=== PATIENT | male | born 1970 | race Hispanic/Latino ===

== ENCOUNTER 2017-01-20 14:31 | Emergency (ER) | payer MEDICAID ==
[2017-01-20 14:32] VITALS: BMI 32.5
[2017-01-20 14:40] VITALS: TEMP 98.2
--- NOTE | 2017-01-20 14:41 | ED PDOC ---
Arrival/HPI - General Time Seen by Provider: 01/20/17 14:37 Historian: Patient - History of Present Illness Narrative History of Present Illness (Text): 01/20/17 14:39 46 y/o male, pmh including lumbar transverse fracture, nkda, c/o abdominal pain with diarrhea started last night. Lt. sided abdominal pain, cramping sensation , watery diarrhea, no recent traveling for the past 3 weeks, no recent antibiotic taken for the past 3 weeks, no objective fever or chills, no night sweat, no rash, no other medical or psychological complaints. Past Medical History - Provider Review Nursing Documentation Reviewed: Yes - Past Medical History Past Medical History: No Previous - Cardiac Hx Cardiac Disorders: No - Pulmonary Hx Respiratory Disorders: Yes Hx Asthma: Yes - Neurological Hx Neurological Disorder: No - HEENT Hx HEENT Disorder: No (WERS RX GLASSES) - Renal Hx Renal Disorder: No - Endocrine/Metabolic Hx Endocrine Disorders: No - Hematological/Oncological Hx Blood Disorders: No - Integumentary Hx Dermatological Disorder: No - Musculoskeletal/Rheumatological Hx Musculoskeletal Disorders: Yes Hx Falls: Yes (RECENT ONE TODAY 05-30-14) Hx Fractures: Yes (LUMBAR TRANSVERSE PROCESS FX.-05-30-14) - Gastrointestinal Hx Gastrointestinal Disorders: No (COSTIPATION) - Genitourinary/Gynecological Hx Genitourinary Disorders: No - Psychiatric Hx Psychophysiologic Disorder: Yes Hx Bipolar Disorder: Yes Hx Depression: Yes Hx Substance Use: No - Past Surgical History Past Surgical History: No Previous - Anesthesia Hx Anesthesia: No Family/Social History - Physician Review Nursing Documentation Reviewed: Yes Family/Social History: Unknown Family HX Smoking Status: Never Smoked Hx Alcohol Use: No Hx Substance Use: No Allergies/Home Meds Allergies/Adverse Reactions: Allergies No Known Allergies Allergy (Verified 01/20/17 14:36) Home Medications: Home Meds Medication Instructions Recorded Confirmed DULoxetine [Cymbalta] 30 mg PO DAILY 05/30/14 01/20/17 Divalproex [Depakote DR] 500 mg PO BID 05/30/14 01/20/17 Review of Systems - Review of Systems Constitutional: absent: Fatigue, Fevers Eyes: absent: Vision Changes ENT: absent: Hearing Changes Respiratory: absent: SOB, Cough, Sputum Cardiovascular: absent: Chest Pain Gastrointestinal: Abdominal Pain, Diarrhea. absent: Constipation, Nausea, Vomiting Musculoskeletal: absent: Arthralgias, Back Pain, Neck Pain, Myalgias Neurological: absent: Headache, Dizziness, Focal Weakness, Gait Changes, Speech Changes Physical Exam Vital Signs Reviewed: Yes Vital Signs Temp Pulse Resp BP Pulse Ox 01/20/17 17:00 67 18 118/79 99 01/20/17 15:41 98.2 F 71 18 120/83 99 01/20/17 14:36 98.2 F 71 16 120/83 96 Temperature: Afebrile Blood Pressure: Normal Pulse: Regular Respiratory Rate: Normal Appearance: Positive for: Well-Appearing, Non-Toxic, Comfortable Pain Distress: Mild Mental Status: Positive for: Alert and Oriented X 3 - Systems Exam Head: Present: Atraumatic, Normocephalic Pupils: Present: PERRL Extroacular Muscles: Present: EOMI Conjunctiva: Present: Normal Mouth: Present: Moist Mucous Membranes Neck: Present: Normal Range of Motion Respiratory/Chest: Present: Clear to Auscultation, Good Air Exchange. No: Respiratory Distress, Accessory Muscle Use Cardiovascular: Present: Regular Rate and Rhythm, Normal S1, S2. No: Murmurs Abdomen: Present: Tenderness (+ttp on the left sided abdominal region. ), Normal Bowel Sounds. No: Distention, Peritoneal Signs, Rebound, Guarding Back: Present: Normal Inspection. No: CVA Tenderness, Midline Tenderness, Paraspinal Tenderness Upper Extremity: Present: Normal Inspection. No: Cyanosis, Edema Lower Extremity: Present: Normal Inspection. No: Edema Neurological: Present: GCS=15, Speech Normal, Motor Func Grossly Intact, Gait Normal, Memory Normal Skin: Present: Warm, Dry, Normal Color. No: Rashes Psychiatric: Present: Alert, Oriented x 3, Normal Insight, Normal Concentration Medical Decision Making ED Course and Treatment: 01/20/17 14:52 -labs/ua -CT abdomen and pelvis with IV contrast -IVF/pepcid/zofran -Observe and reassess 01/20/17 17:42 -Labs are non-significant, lipase within normal imit -UA show no UTI -CT abdomen and pelvis show no acute findings. -Pt. feels much better, will discharge home. -Discharge home with pepcid, zofran, BRAT diet, stay hydrated, non-dairy diet, follow up with your own pmd and GI within 2 days, return to the ER for any new or worsening signs or symptoms. - Lab Interpretations Lab Results: 01/20/17 15:39 01/20/17 15:39 Lab Results 01/20/17 17:03: Urine Color Yellow, Urine Appearance Clear, Urine pH 7.0, Ur Specific [place] 1.020, Urine Protein Negative, Urine Glucose (UA) Negative, Urine Ketones Negative, Urine Blood Trace-intact H, Urine Nitrate Negative, Urine Bilirubin Negative, Urine Urobilinogen 0.2, Ur Leukocyte Esterase Negative , Urine RBC 0 - 2, Urine WBC 0 - 2, Ur Epithelial Cells 0 - 2, Urine Bacteria Neg 01/20/17 15:39: Sodium 140, Potassium 4.1, Chloride 106, Carbon Dioxide 26, Anion Gap 12, BUN 19, Creatinine 0.7, Est GFR ( Amer) > 60, Est GFR (Non- Af Amer) > 60, Random Glucose 89, Calcium 8.7, Total Bilirubin 0.7, AST 26, ALT 33, Alkaline Phosphatase 54, Total Protein 7.4, Albumin 3.9, Globulin 3.5, Albumin/Globulin Ratio 1.1, Lipase 54 01/20/17 15:39: WBC 5.2 D, RBC 4.62, Hgb 13.2 L, Hct 39.6 L, MCV 85.7, MCH 28.6 , MCHC 33.3, RDW 13.5, Plt Count 260, MPV 8.9, Gran % 54.3, Lymph % (Auto) 37.7 H, Leake % (Auto) 6.2 H, Eos % (Auto) 1.2 L, Baso % (Auto) 0.6, Gran # 2.80, Lymph # 1.9, Leake # 0.3, Eos # 0.1, Baso # 0.03 I have reviewed the lab results: Yes Interpretation: No clinic. lab abnormalty - RAD Interpretation Radiology Orders: 01/20/17 14:49 ABDOMEN & PELVIS [ABD & PELVIS IV CONTRAST ONLY] [CT] Stat PROCEDURE: CT Abdomen and Pelvis with contrast HISTORY: Lt. sided abdominal pain with diarrhea COMPARISON: Comparison is made to the previous study dated 05/30/2014 TECHNIQUE: Contrast dose: 100 mL Omnipaque 350. Axial and reformatted coronal and sagittal CT images of the abdomen and pelvis were obtained after IV contrast administration. Radiation dose: Total exam DLP = 814.21 mGy-cm. This CT exam was performed using one or more of the following dose reduction techniques: Automated exposure control, adjustment of the mA and/or kV according to patient size, and/or use of iterative reconstruction technique. FINDINGS: LOWER THORAX: Pleural thickening and trace pleural effusion are again seen at the left lower chest. No significant interval change in the lung bases since the previous exam. LIVER: Unremarkable. No gross lesion or ductal dilatation. GALLBLADDER AND BILE DUCTS: Unremarkable. PANCREAS: Unremarkable. No gross lesion or ductal dilatation. SPLEEN: Unremarkable. ADRENALS: Unremarkable. No mass. KIDNEYS AND URETERS: Unremarkable. No hydronephrosis. No solid mass. VASCULATURE: Unremarkable. No aortic aneurysm. BOWEL: Unremarkable. No obstruction. No gross mural thickening. APPENDIX: Normal appendix. PERITONEUM: Unremarkable. No free fluid. No free air. LYMPH NODES: Unremarkable. No enlarged lymph nodes. BLADDER: Unremarkable. REPRODUCTIVE: Unremarkable. BONES: No acute fracture. OTHER FINDINGS: None. IMPRESSION: No evidence of acute pathology in the abdomen and pelvis. No CT evidence of cholecystitis pancreatitis appendicitis or diverticulitis. No significant interval change since the previous exam noted. Broiler Manager: Radiologist - Medication Orders Current Medication Orders: Discontinued Medications Famotidine (Pepcid) 20 mg IVP STAT STA Stop: 01/20/17 14:45 Last Admin: 01/20/17 15:47 Dose: 20 mg Sodium Chloride (Sodium Chloride 0.9%) 1,000 mls @ 999 mls/hr IV .Q1H1M STA Stop: 01/20/17 15:44 Last Admin: 01/20/17 15:48 Dose: 999 mls/hr Iohexol (Omnipaque 350 100 Ml) Confirm Administered Dose 350 mg .ROUTE .STK-MED ONE Stop: 01/20/17 16:38 Ondansetron HCl (Zofran Inj) 4 mg IVP STAT STA Stop: 01/20/17 14:45 Last Admin: 01/20/17 15:47 Dose: 4 mg - PA / EATING DISORDER PSYCHOLOGIST / Resident Statement /DO has reviewed & agrees with the documentation as recorded. Disposition/Present on Arrival - Present on Arrival Any Indicators Present on Arrival: No History of DVT/PE: No History of Uncontrolled Diabetes: No Urinary Catheter: No History of Decub. Ulcer: No History Surgical Site Infection Following: None - Disposition Have Diagnosis and Disposition been Completed?: Yes Diagnosis: Gastroenteritis Disposition: HOME/ ROUTINE Disposition Time: 17:43 Patient Plan: Discharge Condition: IMPROVED Print Language: GERMAN Additional Instructions: Discharge home with pepcid, zofran, BRAT diet, stay hydrated, non-dairy diet, follow up with your own pmd and GI within 2 days, return to the ER for any new or worsening signs or symptoms. Prescriptions: Famotidine [Pepcid] 20 mg PO BID #14 tab Ondansetron [Zofran] 4 mg PO Q8H PRN #10 tab PRN Reason: Nausea/Vomiting Referrals: Carolyn Pinto MD [Primary Care Provider] - Follow up with primary Arnoldo Celis MD [Staff Provider] - Follow up with primary Forms: WORK NOTE
[2017-01-20] MEDS ORDERED: Sodium Chloride 0.9% 1,000 ML IV STA (14:44)
[2017-01-20 15:42] VITALS: RESP 18; O2SAT 99
[2017-01-20 16:01] LABS: ADD MANUAL DIFF? NO
[2017-01-20 16:03] LABS: BASO # 0.03 K/mm3 (0.0-2.0); BASO % 0.6 % (0.0-3.0); EOS # 0.1 (0.0-0.7); EOS % 1.2 % (1.5-5.0); GRAN % 54.3 % (50.0-68.0); HEMATOCRIT 39.6 % (42.0-52.0); LYMPH # 1.9 (1.2-3.4); LYMPH % 37.7 % (22.0-35.0); MEAN CELL VOLUME 85.7 fL (80.0-105.0); MEAN CORPUSCULAR HEMOGLOBIN 28.6 pg (25.0-35.0); MEAN CORPUSCULAR HGB CONC 33.3 g/dl (31.0-37.0); MEAN PLATELET VOLUME 8.9 fl (7.0-11.0); MONO # 0.3 (0.1-0.6); MONO % 6.2 % (1.0-6.0); PLATELET COUNT 260 10^3/uL (120.0-450.0); RED CELL DISTRIBUTION WIDTH 13.5 % (11.5-14.5); WHITE BLOOD COUNT 5.2 10^3/ul (4.5-11.0)
[2017-01-20 16:17] LABS: ALB/GLOB RATIO 1.1 (1.1-1.8); ALKALINE PHOSPHATASE 54 U/L (38-133); ALT/SGPT 33 U/L (7-56); AST/SGOT 26 U/L (15-59); BILIRUBIN,TOTAL 0.7 mg/dL (0.2-1.3); BLOOD UREA NITROGEN 19 mg/dL (7-21); CALCIUM 8.7 mg/dL (8.4-10.5); CARBON DIOXIDE 26 mmol/L (21-33); CHLORIDE 106 mmol/L (98-107); GFR AFRICAN-AMERICAN > 60; GLUCOSE,RANDOM 89 mg/dL (70-110); LIPASE 54 U/L (23-300); POTASSIUM 4.1 mmol/L (3.6-5.0); SODIUM 140 mmol/L (132-148); TOTAL PROTEIN 7.4 g/dL (5.8-8.3)
[2017-01-20] MEDS ORDERED: Iohexol 350 MG/100 ML VIAL ONE (16:37)
[2017-01-20 17:07] LABS: URINE BILIRUBIN NEGATIVE (NEGATIVE); URINE BLOOD TRACE-INTACT (NEGATIVE); URINE GLUCOSE (UA) NEGATIVE (NEGATIVE); URINE KETONE NEGATIVE (NEGATIVE); URINE LEUKOCYTE ESTERASE NEGATIVE Leu/uL (NEGATIVE); URINE PROTEIN NEGATIVE mg/dL (<30 mg/dL); URINE UROBILINOGEN 0.2 E.U./dL (<1 E.U./dL)
[2017-01-20 17:10] LABS: URINE APPEARANCE CLEAR (CLEAR); URINE COLOR YELLOW (YELLOW)
[2017-01-20 17:12] VITALS: BP 118/79; PULSE 67
[2017-01-20 17:19] LABS: URINE BACTERIA NEG (NEG); URINE EPITHELIAL CELLS 0 - 2 /hpf (0-5); URINE RBC 0 - 2 /hpf (0-2); URINE WBC 0 - 2 /hpf (0-6)
--- NOTE | 2017-01-20 17:39 | CT ---
PROCEDURE: CT Abdomen and Pelvis with contrast HISTORY: Lt. sided abdominal pain with diarrhea COMPARISON: Comparison is made to the previous study dated 05/30/2014 TECHNIQUE: Contrast dose: 100 mL Omnipaque 350. Axial and reformatted coronal and sagittal CT images of the abdomen and pelvis were obtained after IV contrast administration. Radiation dose: Total exam DLP = 814.21 mGy-cm. This CT exam was performed using one or more of the following dose reduction techniques: Automated exposure control, adjustment of the mA and/or kV according to patient size, and/or use of iterative reconstruction technique. FINDINGS: LOWER THORAX: Pleural thickening and trace pleural effusion are again seen at the left lower chest. No significant interval change in the lung bases since the previous exam. LIVER: Unremarkable. No gross lesion or ductal dilatation. GALLBLADDER AND BILE DUCTS: Unremarkable. PANCREAS: Unremarkable. No gross lesion or ductal dilatation. SPLEEN: Unremarkable. ADRENALS: Unremarkable. No mass. KIDNEYS AND URETERS: Unremarkable. No hydronephrosis. No solid mass. VASCULATURE: Unremarkable. No aortic aneurysm. BOWEL: Unremarkable. No obstruction. No gross mural thickening. APPENDIX: Normal appendix. PERITONEUM: Unremarkable. No free fluid. No free air. LYMPH NODES: Unremarkable. No enlarged lymph nodes. BLADDER: Unremarkable. REPRODUCTIVE: Unremarkable. BONES: No acute fracture. OTHER FINDINGS: None. IMPRESSION: No evidence of acute pathology in the abdomen and pelvis. No CT evidence of cholecystitis pancreatitis appendicitis or diverticulitis. No significant interval change since the previous exam noted.
== END 2017-01-20 17:58 | disposition home or self-care (01) ==
LOC: ED 14:31
DX: K52.9 Noninfective gastroenteritis and colitis, unspecified (principal)
CPT/HCPCS: 74177; 80053; 81001; 83690; 85025; 96374; 96375; 99284; J2405; J7040; Q9967